=== PATIENT | male | born 2000 | race Caucasian/White ===

== ENCOUNTER 2021-11-04 06:07 | Emergency (ER) | payer BC ==
[2021-11-04] MEDS ORDERED: Ondansetron PF 4 MG/2 ML Vial ONE (06:25)
[2021-11-04 06:41] LABS: #Basophils 0.1 10x3/uL (0.0-0.2); #Eosinphils 0.2 10x3/uL (0.0-0.5); #Monocytes 0.8 10x3/uL (0.0-1.1); %Eosinophils 2.6 % (0.0-6.0); %Lymphocytes 32.6 % (18.0-47.0); %Monocytes 8.8 % (0.0-10.0); %Neutrophils 54.3 % (40.0-75.0); Hemoglobin 16.3 g/dL (13.5-17.5); Mean Corpuscular HGB CONC 36.5 g/dL (32.0-36.0); Mean Corpuscular Hemoglobin 30.8 pg (27.0-33.0); Mean Corpuscular Volume 84.3 fl (81.2-95.1); Mean Platelet Volume 10.8 fl (7.4-10.4); Platelet Count 298 10x3/uL (150-450); RBC Distribution Width 12.3 % (11.5-14.5); White Blood Cell (WBC) Count 9.2 10x3/uL (3.5-10.5)
[2021-11-04 06:52] LABS: ALT (SGPT) 52 U/L (8-55); AST (SGOT) 30 U/L (5-34); Albumin 4.4 g/dL (3.5-5.0); Alkaline Phosphatase 128 U/L (40-110); Anion Gap 16 mmol/L (10-20); BUN (Urea Nitrogen) 12 mg/dL (8.9-20.6); Bilirubin, Total 0.5 mg/dL (0.2-1.2); Calc. Creatinine Clearance 0 mL/min (70-130); Calcium 9.7 mg/dL (7.8-10.44); Carbon Dioxide 25 mmol/L (22-29); Chloride 102 mmol/L (98-107); Estimated GFR 120; Globulin 3.2 g/dL (2.4-3.5); Glucose 203 mg/dL (70-105); Lipase 15 U/L (8-78); Potassium 4.2 mmol/L (3.5-5.1); Protein, Total 7.6 g/dL (6.0-8.3); Sodium 139 mmol/L (136-145)
== END 2021-11-04 07:27 | disposition home or self-care (01) ==
LOC: CSHERS 06:07
DX: R11.2 Nausea with vomiting, unspecified (principal); R19.7 Diarrhea, unspecified; E10.9 Type 1 diabetes mellitus without complications; Z79.4 Long term (current) use of insulin
CPT/HCPCS: 36416; 80053; 83690; 85025; 96361; 96374; J2405

== ENCOUNTER 2022-02-16 22:23 | Emergency (ER) | payer BC ==
[2022-02-16] MEDS ORDERED: Ondansetron PF 4 MG/2 ML Vial ONE (23:33)
[2022-02-16 23:41] LABS: #Basophils 0.1 10x3/uL (0.0-0.2); #Eosinphils 0.2 10x3/uL (0.0-0.5); #Monocytes 0.9 10x3/uL (0.0-1.1); #Neutrophils 13.8 10x3/uL (1.5-8.4); %Basophils 0.6 % (0.0-2.0); %Eosinophils 1.3 % (0.0-6.0); %Lymphocytes 5.6 % (18.0-47.0); %Monocytes 5.9 % (0.0-10.0); %Neutrophils 86.2 % (40.0-75.0); Hemoglobin 18.1 g/dL (13.5-17.5); Mean Corpuscular HGB CONC 37.5 g/dL (32.0-36.0); Mean Corpuscular Hemoglobin 31.2 pg (27.0-33.0); Mean Corpuscular Volume 83.1 fl (81.2-95.1); Mean Platelet Volume 11.1 fl (7.4-10.4); Platelet Count 317 10x3/uL (150-450); RBC Distribution Width 12.2 % (11.5-14.5); Red Blood Cell (RBC) Count 5.81 10x6/uL (4.32-5.72)
[2022-02-17 00:05] LABS: ALT (SGPT) 43 U/L (8-55); AST (SGOT) 25 U/L (5-34); Alkaline Phosphatase 160 U/L (40-110); Anion Gap 21 mmol/L (10-20); BUN (Urea Nitrogen) 13 mg/dL (8.9-20.6); Calc. Creatinine Clearance 0 mL/min (70-130); Calcium 10.7 mg/dL (7.8-10.44); Carbon Dioxide 27 mmol/L (22-29); Chloride 94 mmol/L (98-107); Estimated GFR 99; Globulin 3.1 g/dL (2.4-3.5); Glucose 213 mg/dL (70-105); Magnesium 1.7 mg/dL (1.6-2.6); Potassium 3.7 mmol/L (3.5-5.1); Protein, Total 8.1 g/dL (6.0-8.3); Sodium 138 mmol/L (136-145)
[2022-02-17] MEDS ORDERED: Ondansetron PF 4 MG/2 ML Vial ONE (02:00)
== END 2022-02-17 02:10 | disposition home or self-care (01) ==
LOC: CSHERS 22:23
DX: E10.65 Type 1 diabetes mellitus with hyperglycemia (principal); R11.2 Nausea with vomiting, unspecified; R19.7 Diarrhea, unspecified; Z79.4 Long term (current) use of insulin; Z79.899 Other long term (current) drug therapy
CPT/HCPCS: 36416; 80053; 82010; 83735; 85025; 96361; 96374; 96376; J2405

== ENCOUNTER 2022-10-18 17:23 | Emergency (ER) | payer BC, SELFPAY ==
[2022-10-18 17:54] LABS: #Eosinphils 0.1 10x3/uL (0.0-0.5); #Monocytes 0.6 10x3/uL (0.0-1.1); #Neutrophils 10.6 10x3/uL (1.5-8.4); %Basophils 0.3 % (0.0-2.0); %Eosinophils 0.8 % (0.0-6.0); %Lymphocytes 13.5 % (18.0-47.0); %Monocytes 4.4 % (0.0-10.0); %Neutrophils 80.7 % (40.0-75.0); Hemoglobin 16.3 g/dL (13.5-17.5); Mean Corpuscular HGB CONC 35.2 g/dL (32.0-36.0); Mean Corpuscular Volume 85.3 fl (81.2-95.1); Mean Platelet Volume 10.9 fl (7.4-10.4); Platelet Count 338 10x3/uL (150-450); RBC Distribution Width 11.8 % (11.5-14.5); Red Blood Cell (RBC) Count 5.43 10x6/uL (4.32-5.72); White Blood Cell (WBC) Count 13.1 10x3/uL (3.5-10.5)
[2022-10-18 18:05] LABS: ALT (SGPT) 29 U/L (8-55); AST (SGOT) 21 U/L (5-34); Albumin 4.6 g/dL (3.5-5.0); Alkaline Phosphatase 121 U/L (40-110); Anion Gap 17 mmol/L (10-20); BUN (Urea Nitrogen) 10 mg/dL (8.9-20.6); Bilirubin, Total 0.4 mg/dL (0.2-1.2); Calc. Creatinine Clearance 0 mL/min (70-130); Calcium 9.9 mg/dL (7.8-10.44); Carbon Dioxide 24 mmol/L (22-29); Chloride 103 mmol/L (98-107); Estimated GFR 124; Globulin 3.3 g/dL (2.4-3.5); Glucose 98 mg/dL (70-105); Lipase 14 U/L (8-78); Protein, Total 7.9 g/dL (6.0-8.3); Sodium 141 mmol/L (136-145)
[2022-10-18] MEDS ORDERED: Prochlorperazine 10 MG/2 ML VIAL ONE (18:12)
[2022-10-18] MEDS ORDERED: Ondansetron PF 4 MG/2 ML Vial ONE (18:12)
[2022-10-18] MEDS ORDERED: Ketorolac Tromethamine 30 MG/ML VIAL ONE (18:12)
[2022-10-18] MEDS ORDERED: Potassium Chloride 20 MEQ TAB ONE (19:52)
== END 2022-10-18 20:00 | disposition home or self-care (01) ==
LOC: CSHERS 17:23
DX: G43.909 Migraine, unspecified, not intractable, without status migrainosus (principal); E87.6 Hypokalemia; E10.9 Type 1 diabetes mellitus without complications; K21.9 Gastro-esophageal reflux disease without esophagitis; Z79.4 Long term (current) use of insulin
CPT/HCPCS: 36416; 80053; 83690; 85025; 96374; 96375; J0780; J1885; J2405

== ENCOUNTER 2022-10-19 10:33 | Emergency (ER) | payer BC ==
[2022-10-19] MEDS ORDERED: Ondansetron PF 4 MG/2 ML Vial ONE (11:12)
[2022-10-19] MEDS ORDERED: diphenhydrAMINE 50 MG/ML VIAL ONE (11:30)
[2022-10-19] MEDS ORDERED: Metoclopramide HCl 10 MG/2 ML VIAL ONE (11:30)
[2022-10-19 11:43] LABS: #Monocytes 0.4 10x3/uL (0.0-1.1); #Neutrophils 9.1 10x3/uL (1.5-8.4); %Basophils 0.2 % (0.0-2.0); %Eosinophils 0.1 % (0.0-6.0); %Monocytes 3.7 % (0.0-10.0); %Neutrophils 85.7 % (40.0-75.0); Hemoglobin 15.3 g/dL (13.5-17.5); Mean Corpuscular HGB CONC 34.9 g/dL (32.0-36.0); Mean Corpuscular Hemoglobin 30.2 pg (27.0-33.0); Mean Corpuscular Volume 86.8 fl (81.2-95.1); Mean Platelet Volume 11.5 fl (7.4-10.4); Platelet Count 310 10x3/uL (150-450); RBC Distribution Width 11.9 % (11.5-14.5); Red Blood Cell (RBC) Count 5.06 10x6/uL (4.32-5.72); White Blood Cell (WBC) Count 10.6 10x3/uL (3.5-10.5)
[2022-10-19 11:48] LABS: ALT (SGPT) 24 U/L (8-55); AST (SGOT) 19 U/L (5-34); Albumin 4.5 g/dL (3.5-5.0); Alkaline Phosphatase 101 U/L (40-110); Anion Gap 16 mmol/L (10-20); BUN (Urea Nitrogen) 10 mg/dL (8.9-20.6); Bilirubin, Total 0.5 mg/dL (0.2-1.2); Calc. Creatinine Clearance 0 mL/min (70-130); Calcium 9.6 mg/dL (7.8-10.44); Carbon Dioxide 24 mmol/L (22-29); Chloride 105 mmol/L (98-107); Estimated GFR 125; Globulin 2.8 g/dL (2.4-3.5); Glucose 123 mg/dL (70-105); Lipase 13 U/L (8-78); Magnesium 1.9 mg/dL (1.6-2.6); Protein, Total 7.3 g/dL (6.0-8.3); Sodium 141 mmol/L (136-145)
[2022-10-19 12:21] LABS: Actual Bicarbonate (HCO3v) 23.4 mEq/L (22-28); Base Excess -1.4 mEq/L (-2 - +2); Calcium, Ionized (venous) 1.14 mmol/L (1.16-1.32); Chloride (VBG) 105 mmol/L (98-106); Hematocrit-VBG 44 % (42.0-52.0); Hemoglobin (Hb) 15.1 g/dL (13.2-17.3); Potassium (VBG) 3.84 mmol/L (3.70-5.30); Puncture Site Other Site; RapidComm Collect By CBN; Sodium 140.2 mmol/L (133-146); pH (venous) 7.389 (7.32-7.43)
[2022-10-19] MEDS ORDERED: Ketorolac Tromethamine 30 MG/ML VIAL ONE (13:16)
== END 2022-10-19 14:27 | disposition home or self-care (01) ==
LOC: CSHERS 10:33
DX: T67.5XXA Heat exhaustion, unspecified, initial encounter (principal)
CPT/HCPCS: 36416; 70450; 80053; 82010; 82550; 82805; 83690; 83735; 85025; 96361; 96365; 96375; J1200; J1885; J2405; J2765

== ENCOUNTER 2022-12-17 15:31 | Emergency (ER) | payer BC, SELFPAY ==
[2022-12-17] MEDS ORDERED: Bupivacaine PF 0.5% 30 ML VIAL ONE (17:40)
[2022-12-17] MEDS ORDERED: HYDROcodone/Acetaminophen 5/325 mg Tablet ONE (18:36)
== END 2022-12-17 19:10 | disposition home or self-care (01) ==
LOC: CSHERS 15:31
DX: K08.89 Other specified disorders of teeth and supporting structures (principal); E10.9 Type 1 diabetes mellitus without complications; K21.9 Gastro-esophageal reflux disease without esophagitis
CPT/HCPCS: 41800; S0020

== ENCOUNTER 2023-06-14 19:47 | Inpatient (IN) | payer OTHER ==
[2023-06-14] MEDS ORDERED: Ondansetron PF 4 MG/2 ML Vial ONE ×2 (20:12→22:38)
[2023-06-14 20:32] LABS: #Basophils 0.1 10x3/uL (0.0-0.2); #Eosinphils 0.1 10x3/uL (0.0-0.5); #Monocytes 0.5 10x3/uL (0.0-1.1); #Neutrophils 12.2 10x3/uL (1.5-8.4); %Basophils 0.6 % (0.0-2.0); %Eosinophils 0.3 % (0.0-6.0); %Lymphocytes 27.2 % (18.0-47.0); %Neutrophils 68.5 % (40.0-75.0); Hematocrit 50.8 % (38.8-50.0); Hemoglobin 18.4 g/dL (13.5-17.5); Mean Corpuscular HGB CONC 36.2 g/dL (32.0-36.0); Mean Corpuscular Hemoglobin 29.5 pg (27.0-33.0); Mean Corpuscular Volume 81.5 fl (81.2-95.1); Mean Platelet Volume 10.9 fl (7.4-10.4); Platelet Count 444 10x3/uL (150-450); RBC Distribution Width 11.7 % (11.5-14.5); Red Blood Cell (RBC) Count 6.23 10x6/uL (4.32-5.72); White Blood Cell (WBC) Count 17.9 10x3/uL (3.5-10.5)
[2023-06-14 20:40] LABS: Acetaminophen Less than 10 mcg/mL (10.0-30.0); Alcohol Less than 10.0 mg/dL (Less than 10); Lipase 28 U/L (8-78); Magnesium 1.7 mg/dL (1.6-2.6); Salicylate Less than 8.0 mg/dL (15.0-30.0)
[2023-06-14 20:41] LABS: ALT (SGPT) 23 U/L (8-55); AST (SGOT) 17 U/L (5-34); Albumin 5.1 g/dL (3.5-5.0); Alkaline Phosphatase 176 U/L (40-110); Anion Gap 21 mmol/L (10-20); BUN (Urea Nitrogen) 16 mg/dL (8.9-20.6); Bilirubin, Total 0.4 mg/dL (0.2-1.2); Calc. Creatinine Clearance 0 mL/min (70-130); Carbon Dioxide 18 mmol/L (22-29); Chloride 99 mmol/L (98-107); Estimated GFR 79; Globulin 3.7 g/dL (2.4-3.5); Potassium 3.6 mmol/L (3.5-5.1); Protein, Total 8.8 g/dL (6.0-8.3); Sodium 134 mmol/L (136-145)
[2023-06-14 20:48] LABS: Glucose 450 mg/dL (70-105)
[2023-06-14] MEDS ORDERED: INSULIN REGULAR IN 0.9 % NACL 100 UNITS/100 ML BAG ONE (21:11)
[2023-06-14] MEDS ORDERED: Dextrose 5 %-0.45 % NaCl 1,000 ML IV PRN (21:50)
[2023-06-14] MEDS ORDERED: Ondansetron PF 4 MG/2 ML Vial IVP PRN (21:50)
[2023-06-14] MEDS ORDERED: D5 1/2 NS w/20 mEq KCL 1,000 ML IV PRN (21:50)
[2023-06-14] MEDS ORDERED: Acetaminophen 325 MG TAB PO PRN (21:50)
[2023-06-14] MEDS ORDERED: Electrolyte Replacement Protocol 1 EACH IVPB PRN (21:50)
[2023-06-14] MEDS ORDERED: Acetaminophen 650 MG Suppository PR PRN (21:50)
[2023-06-14] MEDS ORDERED: Dextrose 50% Abboject 50 ML SYRINGE SLOW IVP PRN (21:50)
[2023-06-14] MEDS ORDERED: Sodium Chloride 0.9% 1,000 ML IV PRN ×2 (21:50)
[2023-06-14] MEDS ORDERED: Ondansetron ODT 4 MG TAB PO PRN (21:50)
[2023-06-14] MEDS ORDERED: NS 0.9% w/ 20 MEQ KCL 1,000 ML IV PRN ×2 (21:50)
[2023-06-14 21:54] LABS: Actual Bicarbonate (HCO3v) 25.5 mEq/L (22-28); Analyzer IN Cardio CS ER; Base Excess -2.5 mEq/L (-2 - +2); Calcium, Ionized (venous) 1.23 mmol/L (1.16-1.32); Chloride (VBG) 98 mmol/L (98-106); Hematocrit-VBG 51 % (42.0-52.0); Hemoglobin (Hb) 17.3 g/dL (13.2-17.3); Potassium (VBG) 4.45 mmol/L (3.70-5.30); Puncture Site Other Site; RapidComm Collect By LAB; Sodium 141 mmol/L (133-146); pH (venous) 7.279 (7.32-7.43)
[2023-06-14] MEDS ORDERED: HUMULIN R 100 UNITS in Sodium Chloride 0.9% 100 ML IVPB SCH (22:00)
[2023-06-15] MEDS ORDERED: HumaLOG 300 UNITS/3 ML VIAL SC PRN ×3 (00:18→08:15)
[2023-06-15] MEDS ORDERED: Dextrose 5% in Water 1,000 ML IV PRN (00:18)
[2023-06-15] MEDS ORDERED: Dextrose 50% Abboject 50 ML SYRINGE SLOW IVP PRN (00:18)
[2023-06-15] MEDS ORDERED: Glucagon 1 MG/ML KIT IM PRN (00:18)
[2023-06-15 00:34] LABS: Anion Gap 12 mmol/L (10-20); BUN (Urea Nitrogen) 15 mg/dL (8.9-20.6); Calc. Creatinine Clearance 0 mL/min (70-130); Calcium 8.9 mg/dL (7.8-10.44); Carbon Dioxide 22 mmol/L (22-29); Chloride 106 mmol/L (98-107); Estimated GFR 127; Glucose 87 mg/dL (70-105); Phosphorus 2.2 mg/dL (2.3-4.7); Potassium 3.4 mmol/L (3.5-5.1); Sodium 137 mmol/L (136-145)
[2023-06-15 01:19] VITALS: BMI 25.7
[2023-06-15] MEDS: Magnesium 2 GM/50 ML(in water) 2 GM in Premix 1 BAG IVPB SCH (02:22)
[2023-06-15] MEDS: Potassium Chloride 20 MEQ in Premix 1 BAG IVPB SCH (02:22)
[2023-06-15 03:06] LABS: #Basophils 0.1 10x3/uL (0.0-0.2); #Eosinphils 0.1 10x3/uL (0.0-0.5); #Monocytes 0.9 10x3/uL (0.0-1.1); #Neutrophils 15.2 10x3/uL (1.5-8.4); %Basophils 0.3 % (0.0-2.0); %Eosinophils 0.3 % (0.0-6.0); %Lymphocytes 7.5 % (18.0-47.0); %Neutrophils 86.4 % (40.0-75.0); Hematocrit 44.5 % (38.8-50.0); Hemoglobin 15.8 g/dL (13.5-17.5); Mean Corpuscular HGB CONC 35.5 g/dL (32.0-36.0); Mean Corpuscular Hemoglobin 29.5 pg (27.0-33.0); Mean Corpuscular Volume 83.2 fl (81.2-95.1); Mean Platelet Volume 10.8 fl (7.4-10.4); Platelet Count 353 10x3/uL (150-450); RBC Distribution Width 11.7 % (11.5-14.5); Red Blood Cell (RBC) Count 5.35 10x6/uL (4.32-5.72); White Blood Cell (WBC) Count 17.6 10x3/uL (3.5-10.5)
[2023-06-15] MEDS: Lantus 1000 UNITS/10 ML VIAL SC SCH (03:21)
[2023-06-15 03:43] LABS: Anion Gap 11 mmol/L (10-20); BUN (Urea Nitrogen) 15 mg/dL (8.9-20.6); Calc. Creatinine Clearance 162 mL/min (70-130); Calcium 8.9 mg/dL (7.8-10.44); Carbon Dioxide 26 mmol/L (22-29); Chloride 104 mmol/L (98-107); Estimated GFR 125; Glucose 113 mg/dL (70-105); Potassium 3.9 mmol/L (3.5-5.1); Sodium 137 mmol/L (136-145)
[2023-06-15 05:02] VITALS: BP 108/68; TEMP 98.9
[2023-06-15 05:05] LABS: Actual Bicarbonate (HCO3v) 22.2 mEq/L (22-28); Analyzer IN Cardio CS ER; Base Excess -3.3 mEq/L (-2 - +2); Calcium, Ionized (venous) 1.22 mmol/L (1.16-1.32); Chloride (VBG) 104 mmol/L (98-106); Hematocrit-VBG 50 % (42.0-52.0); Hemoglobin (Hb) 17.1 g/dL (13.2-17.3); Potassium (VBG) 3.61 mmol/L (3.70-5.30); Puncture Site Other Site; RapidComm Collect By LAB; Sodium 144 mmol/L (133-146); pH (venous) 7.345 (7.32-7.43)
[2023-06-15] MEDS ORDERED: Lantus 1000 UNITS/10 ML VIAL SC SCH (21:00)
== END 2023-06-15 09:57 | disposition home or self-care (01) | DRG 639 ==
LOC: CSHERS 19:47 → CSHICU 21:17
PROVIDERS: ADMIT Student in an Organized Health Care Education/Training Program; ATTEND Family Medicine
DX: E10.10 Type 1 diabetes mellitus with ketoacidosis without coma (principal); Z79.899 Other long term (current) drug therapy; Z79.4 Long term (current) use of insulin; K21.9 Gastro-esophageal reflux disease without esophagitis; Z90.89 Acquired absence of other organs; F17.220 Nicotine dependence, chewing tobacco, uncomplicated; D72.829 Elevated white blood cell count, unspecified; E86.0 Dehydration
CPT/HCPCS: 36415; 36416; 71045; 80048; 80053; 80307; 82010; 82805; 83690; 83735; 84100; 84145; 85025; 87040; 96361; 96365; 96375; 96376; J1815; J2405; J3475; J3480

== ENCOUNTER 2024-04-11 11:12 | Inpatient (IN) | payer OTHER ==
[2024-04-11 12:11] LABS: #Basophils 0.04 10x3/uL (0.0-0.2); #Eosinophils 0.03 10x3/uL (0.0-0.5); #Monocytes 0.57 10x3/uL (0.0-1.1); #Neutrophils 13.58 10x3/uL (1.5-8.4); %Basophils 0.3 % (0.0-2.0); %Eosinophils 0.2 % (0.0-6.0); %Lymphocytes 9.8 % (18.0-47.0); %Monocytes 3.6 % (0.0-10.0); %Neutrophils 85.7 % (40.0-75.0); Hematocrit 40.3 % (38.8-50.0); Hemoglobin 14.7 g/dL (13.5-17.5); Mean Corpuscular HGB CONC 36.5 g/dL (32.0-36.0); Mean Corpuscular Volume 82.2 fL (81.2-95.1); Mean Platelet Volume 11.2 fL (7.4-10.4); Platelet Count 294 10x3/uL (150-450); RBC Distribution Width 11.9 % (11.5-14.5); White Blood Cell (WBC) Count 15.8 10x3/uL (3.5-10.5)
[2024-04-11 12:16] LABS: Analyzer IN Cardio CS ER; Base Excess -7.1 mEq/L (-2 - +2); Calcium, Ionized (venous) 1.17 mmol/L (1.16-1.32); Chloride (VBG) 92 mmol/L (98-106); Hematocrit-VBG 45 % (42.0-52.0); Hemoglobin (Hb) 15.4 g/dL (13.2-17.3); Potassium (VBG) 4.86 mmol/L (3.70-5.30); Puncture Site Other Site; RapidComm Collect By RN; Sodium 130 mmol/L (133-146); pH (venous) 7.323 (7.32-7.43)
[2024-04-11 12:19] LABS: Phosphorus 3.2 mg/dL (2.3-4.7)
[2024-04-11 12:21] LABS: ALT (SGPT) 18 U/L (8-55); AST (SGOT) 18 U/L (5-34); Albumin 4.1 g/dL (3.5-5.0); Alkaline Phosphatase 122 U/L (40-110); Anion Gap 24 mmol/L (10-20); BUN (Urea Nitrogen) 17 mg/dL (8.9-20.6); Bilirubin, Total 1.2 mg/dL (0.2-1.2); Calc. Creatinine Clearance 0 mL/min (70-130); Calcium 9.6 mg/dL (7.8-10.44); Carbon Dioxide 18 mmol/L (22-29); Chloride 90 mmol/L (98-107); Estimated GFR 71; Globulin 2.6 g/dL (2.4-3.5); Lipase 9 U/L (8-78); Magnesium 1.6 mg/dL (1.6-2.6); Potassium 5.4 mmol/L (3.5-5.1); Protein, Total 6.7 g/dL (6.0-8.3); Sodium 127 mmol/L (136-145)
[2024-04-11 12:25] LABS: Troponin I Less than 0.010 ng/mL (< 0.028)
[2024-04-11 12:43] LABS: Glucose 731 mg/dL (70-105)
[2024-04-11] MEDS ORDERED: INSULIN REGULAR IN 0.9 % NACL 100 ML ONE (12:50)
[2024-04-11] MEDS ORDERED: Ondansetron PF 4 MG/2 ML Vial ONE (12:51)
[2024-04-11] MEDS ORDERED: Dextrose 5 %-0.45 % NaCl 1,000 ML IV PRN (12:52)
[2024-04-11] MEDS ORDERED: traMADol HCl 50 MG TAB PO PRN (12:52)
[2024-04-11] MEDS ORDERED: NS 0.9% w/ 20 MEQ KCL 1,000 ML IV PRN ×2 (12:52)
[2024-04-11] MEDS ORDERED: Sodium Chloride 0.9% 1,000 ML IV PRN ×4 (12:52)
[2024-04-11] MEDS ORDERED: Electrolyte Replacement Protocol 1 EACH IVPB PRN (12:52)
[2024-04-11] MEDS ORDERED: Ondansetron PF 4 MG/2 ML Vial IVP PRN (12:52)
[2024-04-11] MEDS ORDERED: INSULIN REGULAR IN 0.9 % NACL 100 ML IVPB SCH (13:00)
[2024-04-11 13:23] LABS: Bilirubin Neg (Negative); Blood, Urine Negative (Negative); Clarity Clear (Clear); Glucose, Urine (Dipstick) >=1000 mg/dL (Negative); Ketone, Urine 150 mg/dL (Negative); Leukocyte Negative (Negative); Nitrite Negative (Negative); Protein, Urine (Dipstick) Negative (Neg-Trace); Urobilinogen Normal mg/dL (Less than 2)
[2024-04-11 13:44] LABS: Anion Gap 22 mmol/L (10-20); BUN (Urea Nitrogen) 17 mg/dL (8.9-20.6); Calc. Creatinine Clearance 0 mL/min (70-130); Calcium 8.7 mg/dL (7.8-10.44); Carbon Dioxide 18 mmol/L (22-29); Chloride 98 mmol/L (98-107); Estimated GFR 90; Sodium 133 mmol/L (136-145)
[2024-04-11 13:59] LABS: Critical Call Chemistry NUR.WB @1358; Glucose 606 mg/dL (70-105)
[2024-04-11 14:08] LABS: Bacteria/HPF None Seen HPF (None Seen); CAUTI Indications for Culture Dysuria,urgency,freq; RBC/HPF None Seen HPF (0-3); Squamous Epithelial 0-3 HPF (0-3); WBC/HPF None Seen HPF (0-3)
[2024-04-11 14:10] LABS: Urine Culture Reflex No No
[2024-04-11] MEDS: Magnesium 2 GM/50 ML(in water) 2 GM in Premix 1 BAG IVPB SCH (16:26)
[2024-04-11] MEDS: Enoxaparin 40 MG (0.4 mL) SYRINGE SC SCH (16:26)
[2024-04-11 17:35] LABS: Anion Gap 15 mmol/L (10-20); BUN (Urea Nitrogen) 15 mg/dL (8.9-20.6); Calc. Creatinine Clearance 0 mL/min (70-130); Calcium 9.2 mg/dL (7.8-10.44); Carbon Dioxide 23 mmol/L (22-29); Chloride 103 mmol/L (98-107); Estimated GFR 120; Glucose 241 mg/dL (70-105); Potassium 3.9 mmol/L (3.5-5.1); Sodium 137 mmol/L (136-145)
[2024-04-11] MEDS: D5 1/2 NS w/20 mEq KCL 1,000 ML IV PRN (19:05)
[2024-04-11] MEDS: Dextrose 50% Abboject 50 ML SYRINGE SLOW IVP PRN (19:20)
[2024-04-11] MEDS: Famotidine 20 MG TAB PO SCH (20:16)
[2024-04-11 21:04] LABS: Anion Gap 12 mmol/L (10-20); BUN (Urea Nitrogen) 12 mg/dL (8.9-20.6); Calc. Creatinine Clearance 0 mL/min (70-130); Calcium 8.4 mg/dL (7.8-10.44); Carbon Dioxide 24 mmol/L (22-29); Chloride 103 mmol/L (98-107); Estimated GFR 122; Glucose 258 mg/dL (70-105); Potassium 3.9 mmol/L (3.5-5.1); Sodium 135 mmol/L (136-145)
[2024-04-12] MEDS ORDERED: Dextrose 50% Abboject 50 ML SYRINGE SLOW IVP PRN (00:17)
[2024-04-12] MEDS ORDERED: Glucagon 1 MG/ML KIT IM PRN (00:17)
[2024-04-12] MEDS ORDERED: Dextrose 5% in Water 1,000 ML IV PRN (00:17)
[2024-04-12] MEDS: Lantus 1000 UNITS/10 ML VIAL SC SCH ×2 (00:26→10:08)
[2024-04-12] MEDS: Insulin Lispro 100 UNIT/ML 10 ML VIAL SC PRN (04:08)
[2024-04-12 04:57] LABS: #Basophils 0.05 10x3/uL (0.0-0.2); #Eosinophils 0.15 10x3/uL (0.0-0.5); #Monocytes 0.84 10x3/uL (0.0-1.1); #Neutrophils 7.63 10x3/uL (1.5-8.4); %Basophils 0.4 % (0.0-2.0); %Eosinophils 1.3 % (0.0-6.0); %Lymphocytes 26.4 % (18.0-47.0); %Monocytes 7.1 % (0.0-10.0); %Neutrophils 64.5 % (40.0-75.0); Hematocrit 36.3 % (38.8-50.0); Mean Corpuscular HGB CONC 35.8 g/dL (32.0-36.0); Mean Corpuscular Volume 83.6 fL (81.2-95.1); Mean Platelet Volume 10.9 fL (7.4-10.4); Platelet Count 259 10x3/uL (150-450); RBC Distribution Width 12.1 % (11.5-14.5); Red Blood Cell (RBC) Count 4.34 10x6/uL (4.32-5.72); White Blood Cell (WBC) Count 11.8 10x3/uL (3.5-10.5)
[2024-04-12 05:10] LABS: Anion Gap 14 mmol/L (10-20); BUN (Urea Nitrogen) 11 mg/dL (8.9-20.6); Calc. Creatinine Clearance 0 mL/min (70-130); Calcium 8.5 mg/dL (7.8-10.44); Carbon Dioxide 21 mmol/L (22-29); Chloride 105 mmol/L (98-107); Estimated GFR 126; Glucose 200 mg/dL (70-105); Magnesium 1.7 mg/dL (1.6-2.6); Phosphorus 3.1 mg/dL (2.3-4.7); Sodium 136 mmol/L (136-145)
[2024-04-12] MEDS: Magnesium Sulfate/D5W 1 GM/100 ML BAG IVPB SCH (06:07)
[2024-04-12 07:45] VITALS: TEMP 99.2
[2024-04-12] MEDS ORDERED: FLU (Fluarix Triv) TS24-25(6MOS UP)/PF 45 MCG/0.5 ML Syringe IM ONE (09:00)
[2024-04-12] MEDS: Enoxaparin 40 MG (0.4 mL) SYRINGE SC SCH (10:27)
[2024-04-12 14:24] VITALS: BP 113/59
== END 2024-04-12 12:40 | disposition home or self-care (01) | DRG 639 ==
LOC: CSHERS 11:12 → CSHTELE 14:17
PROVIDERS: ADMIT Internal Medicine; ATTEND Internal Medicine
DX: E10.10 Type 1 diabetes mellitus with ketoacidosis without coma (principal); K21.9 Gastro-esophageal reflux disease without esophagitis; Z90.89 Acquired absence of other organs; D72.829 Elevated white blood cell count, unspecified; F17.220 Nicotine dependence, chewing tobacco, uncomplicated; Z79.899 Other long term (current) drug therapy
CPT/HCPCS: 36415; 36416; 71045; 80048; 80053; 81001; 82010; 82805; 83605; 83690; 83735; 83930; 84100; 84484; 85025; 87040; 93005; 94760; 96374; 96375; J1650; J1815; J2405; J3475; J3480; J7999